=== PATIENT | male | born 1955 | race African-American/Black ===

== ENCOUNTER 2018-10-24 08:59 | Emergency (ER) | payer MEDICAID, MEDICARE ==
[~2018-10-24] VITALS: Ht 188 cm; Wt 105.0 kg
[~2018-10-24 08:59] MED LIST: AMLO5TAB88 PO; Aspirin PO; Famotidine PO; LISI1TAB11 PO; ROSU10TA PO
[2018-10-24 10:57] LABS: CHLORIDE 105 mEq/L (98-107)
[2018-10-24 10:59] LABS: BASOPHILS % 1.3 % (0.0-2.0); EOSINOPHILS % 2.3 % (0.0-5.0); HEMATOCRIT. 43.7 % (42.0-52.0); HEMOGLOBIN. 14.9 g/dL (14.0-18.0); LYMPHOCYTES % 28.3 % (20.0-50.0); MEAN CORPUSCULAR HEMOGLOBIN 29.4 pg (28.0-32.0); MEAN CORPUSCULAR VOLUME 86.5 fL (80.0-94.0); MEAN PLATELET VOLUME 8.9 fl (7.4-10.4); NEUTROPHILS % 59.1 % (40.0-76.0); PLATELET 218 x1000/uL (130-400); RED BLOOD CELL COUNT 5.06 mill/uL (4.7-6.1); RED CELL DISTRIBUTION WIDTH 14.6 % (11.6-14.6)
[2018-10-24 12:38] VITALS: BP 132/82
== END 2018-10-24 13:46 | disposition home or self-care (01) ==
LOC: ER 09:30
DX: R55 Syncope and collapse (principal); R42 Dizziness and giddiness; T73.0XXA Starvation, initial encounter; K21.9 Gastro-esophageal reflux disease without esophagitis; I25.10 Atherosclerotic heart disease of native coronary artery without angina pectoris; J45.909 Unspecified asthma, uncomplicated; I10 Essential (primary) hypertension; Z59.0 Homelessness; Z79.82 Long term (current) use of aspirin
CPT/HCPCS: 36415; 71045; 83880; 84484; 93005; 99284